=== PATIENT | female | born 1955 | race Caucasian/White ===

== ENCOUNTER 2017-06-25 10:46 | Inpatient (IN) | payer OTHER, MEDICARE ==
[~2017-06-25] VITALS: Ht 165.1 cm; Wt 72.6 kg
[2017-06-25 11:06] VITALS: BP 147/67; PULSE 97; RESP 24; TEMP 98.3; O2SAT 95
[2017-06-25 11:46] LABS: AUTOMATED NEUTROPHIL # 6.9 TH/MM3 (1.8-7.7); BASOPHIL % 0.3 % (0.0-2.0); EOSINOPHIL # 0.1 TH/MM3 (0-0.4); EOSINOPHIL % 0.9 % (0.0-4.0); HEMATOCRIT 39.2 % (35.0-46.0); HEMO FLAGS DIFF FINAL; LYMPH % 17.5 % (9.0-44.0); LYMPHOCYTE # 1.6 TH/MM3 (1.0-4.8); MEAN CELL VOLUME 88.3 FL (80.0-100.0); MEAN CORPUSCULAR HEMOGLOBIN 29.4 PG (27.0-34.0); MEAN CORPUSCULAR HGB CONC 33.3 % (32.0-36.0); MONO % 6.3 % (0.0-8.0); PLATELET COUNT 293 TH/MM3 (150-450); RED BLOOD COUNT 4.44 MIL/MM3 (4.00-5.30); RED CELL DISTRIBUTION WIDTH 14.5 % (11.6-17.2); WHITE BLOOD COUNT 9.2 TH/MM3 (4.0-11.0)
--- NOTE | 2017-06-25 11:54 | PD ---
HPI Chief Complaint: Psychiatric Symptoms Time Seen by Provider: 11:51 Travel History International Travel<30 days: No Contact w/Intl Traveler<30days: No Traveled to known affect area: No History of Present Illness HPI This is a 62-year-old female who self reports that she has a history of schizophrenia reporting that she's had increasing auditory and visual hallucinations have been going on for 2 days. She says that she is hearing voices constantly and she sees things and when she grows to grab them and they' re not there. She says the voices are telling her to run. She runs and follows them but then they tell her to do something different. She is very anxious and upset by this. She lives with her brother and states home by herself during the day. She says she's been doing fine up until the past 2 days. PFSH Past Medical History Blood Disorders: No Anxiety: Yes Depression: Yes Cancer: No Diabetes: Yes Patient Takes Glucophage: No Gastrointestinal Disorders: Yes Genitourinary: Yes Hypertension: Yes Psychiatric: Yes Tetanus Vaccination: > 5 Years Influenza Vaccination: Yes ?: Not Past Surgical History Cardiac Surgery: Yes (STENT X1 2014) Cholecystectomy: Yes Hysterectomy: Yes Pacemaker: No Other Surgery: Yes (R SIDED NEPHRECTOMY) Social History Alcohol Use: No Tobacco Use: Yes Substance Use: No Allergies-Medications (Allergen,Severity, Reaction): Coded Allergies: codeine (Unverified Allergy, Severe, 06/25/17) Penicillins (Verified Allergy, Intermediate, HIVES, 06/25/17) tramadol (Verified Allergy, Intermediate, HIVES, 06/25/17) Reported Meds & Prescriptions Reported Meds & Active Scripts Active Reported Doxepin (Doxepin HCl) 10 Mg Cap 10 Mg PO DAILY Effient (Prasugrel) 10 Mg Tab 10 Mg PO DAILY Duloxetine DR (Duloxetine HCl) 60 Mg Capdr 60 Mg PO DAILY Losartan-Hydrochlorothiazide 50-12.5 Mg Tab 1 Tab PO DAILY Lyrica (Pregabalin) 50 Mg Cap 50 Mg PO TID Diazepam 5 Mg Tab 5 Mg PO HS PRN Amlodipine (Amlodipine Besylate) 10 Mg Tab 10 Mg PO DAILY Doxepin (Doxepin HCl) 25 Mg Cap 25 Mg PO HS Aspirin EC (Aspirin) 81 Mg Tabdr 81 Mg PO DAILY Ziprasidone 80 Mg Cap 80 Mg PO DAILY Review of Systems ROS Limitations: Psychotic Physical Exam Narrative GENERAL:Well appearing, no acute distress SKIN: Focused skin assessment warm and dry. HEAD: Atraumatic. Normocephalic. EYES: Pupils equal and round. No injection or drainage. ENT: Moist mucous membranes NECK: Trachea midline. CARDIOVASCULAR: Regular rate and rhythm. No murmur appreciated. RESPIRATORY: Clear to auscultation. Breath sounds equal bilaterally. GASTROINTESTINAL: Abdomen soft, non-tender, nondistended. MUSCULOSKELETAL: No obvious deformities. NEUROLOGICAL: Awake and alert. No obvious cranial nerve deficits. Moving all extremities. PSYCHIATRIC: Tearful, anxious Data Data Last Documented VS Vital Signs Date Time Temp Pulse Resp B/P (MAP) Pulse Ox O2 Delivery O2 Flow Rate FiO2 06/25/17 12:26 71 17 164/62 (96) 95 Room Air 06/25/17 11:06 98.3 Orders Orders Complete Blood Count With Diff (06/25/17 11:21) Comprehensive Metabolic Panel (06/25/17 11:21) Psych Screen (06/25/17 11:21) Drug Screen, Random Urine (06/25/17 11:21) Olanzapine Odt (Zyprexa Zydis Odt) (06/25/17 12:00) Labs Laboratory Tests Test 06/25/17 11:00 White Blood Count 9.2 TH/MM3 Red Blood Count 4.44 MIL/MM3 Hemoglobin 13.1 GM/DL Hematocrit 39.2 % Mean Corpuscular Volume 88.3 FL Mean Corpuscular Hemoglobin 29.4 PG Mean Corpuscular Hemoglobin Concent 33.3 % Red Cell Distribution Width 14.5 % Platelet Count 293 TH/MM3 Mean Platelet Volume 7.7 FL Neutrophils (%) (Auto) 75.0 % Lymphocytes (%) (Auto) 17.5 % Monocytes (%) (Auto) 6.3 % Eosinophils (%) (Auto) 0.9 % Basophils (%) (Auto) 0.3 % Neutrophils # (Auto) 6.9 TH/MM3 Lymphocytes # (Auto) 1.6 TH/MM3 Monocytes # (Auto) 0.6 TH/MM3 Eosinophils # (Auto) 0.1 TH/MM3 Basophils # (Auto) 0.0 TH/MM3 CBC Comment DIFF FINAL Differential Comment Blood Urea Nitrogen 15 MG/DL Creatinine 0.92 MG/DL Random Glucose 281 MG/DL Total Protein 8.2 GM/DL Albumin 3.7 GM/DL Calcium Level 8.9 MG/DL Alkaline Phosphatase 124 U/L Aspartate Amino Transf (AST/SGOT) 25 U/L Alanine Aminotransferase (ALT/SGPT) 33 U/L Total Bilirubin 0.3 MG/DL Sodium Level 135 MEQ/L Potassium Level 4.0 MEQ/L Chloride Level 103 MEQ/L Carbon Dioxide Level 26.8 MEQ/L Anion Gap 5 MEQ/L Estimat Glomerular Filtration Rate 62 ML/MIN Urine Opiates Screen NEG Urine Barbiturates Screen NEG Urine Amphetamines Screen NEG Urine Benzodiazepines Screen POS Urine Cocaine Screen NEG Urine Cannabinoids Screen NEG MDM Medical Decision Making Medical Screen Exam Complete: Yes Emergency Medical Condition: Yes Interpretation(s) Afebrile, mild tachycardia, hypertensive Differential Diagnosis No leukocytosis Mild hypokalemia Hyperglycemia Urine drug screen is positive for benzodiazepines Narrative Course This is a 62-year-old female who has a history of schizophrenia who presents to the emergency department reporting increasing auditory and visual hallucinations. She appears acutely psychotic on exam. Labs are obtained which are reassuring. Patient will likely require psychiatric admission. I don 't appreciate any active concurrent medical problems at this time. Hilda Aponte MD Jun 25, 2017 11:54
[2017-06-25] MEDS ORDERED: OLANZapine ODT 10 MG TAB PO ONE (12:00)
[2017-06-25 12:02] LABS: ALT (GPT) 33 U/L (10-53); ANION GAP 5 MEQ/L (5-15); AST (GOT) 25 U/L (15-37); BICARBONATE 26.8 MEQ/L (21.0-32.0); BLOOD UREA NITROGEN 15 MG/DL (7-18); CHLORIDE 103 MEQ/L (98-107); GLOMERULAR FILTRATION RATE 62 ML/MIN (>89); SODIUM (NA) 135 MEQ/L (136-145)
[2017-06-25 12:04] LABS: ALKALINE PHOSPHATASE 124 U/L (45-117); TOTAL BILIRUBIN ADULT 0.3 MG/DL (0.2-1.0)
[2017-06-25] MEDS ORDERED: ASPI81TA11 PO (12:11)
[2017-06-25] MEDS ORDERED: DOXE25CA2 PO ×2 (12:11)
[2017-06-25] MEDS ORDERED: ZIPR1CAP12 PO (12:11)
[2017-06-25] MEDS ORDERED: DIAZ5TAB PO (12:18)
[2017-06-25] MEDS ORDERED: DULO1CAP3 PO (12:18)
[2017-06-25] MEDS ORDERED: LYRI50CA PO (12:18)
[2017-06-25] MEDS ORDERED: AMLO10TA2 PO (12:18)
[2017-06-25] MEDS ORDERED: LOSA50TA2 PO (12:18)
[2017-06-25] MEDS ORDERED: PRAS10TA PO (12:20)
[2017-06-25 12:26] VITALS: BP 164/62; PULSE 71; RESP 17; O2SAT 95
[2017-06-25] MEDS ORDERED: DOXE10CA PO (12:55)
[2017-06-25] MEDS ORDERED: ZIPRASIDONE MESYLATE 20 MG VIAL IM ONE (15:45)
--- NOTE | 2017-06-25 16:13 | PD ---
History of Present Illness Chief Complaint: Psychiatric Symptoms Time Seen by Provider: 15:15 Travel History International Travel<30 Days: No Contact w/Intl Traveler<30days: No Known affected area: No Legal Status Legal Status: Lee Act Lee Act Signed By: [facility] Lee Act Comment: INVOLUNTARY SIGNED BY History of Present Illness: History of Present Illness HPI This is a 62-year-old female with history of schizoaffective disorder, generalized anxiety disorder who is under a Lee act initiated by her outpatient therapist. As per the Lee act she presented to the office " with visual and auditory hallucinations including grabbing at things that aren't there", not being able to focus, inability to sleep due to intrusive thoughts with increase in symptoms in the past 2 days. She says the voices are telling her to run. She is very anxious and upset by this. She reports medication compliance. Recent stressors include of her brother approximately 2 months ago, recent divorce, recent move to [facility] and unable to see her grandchildren. EMR reviewed. No previous contact with [facility] psychiatry. Toxicology is positive for benzos which are prescribed. Patient is seen . Appears stated age. Dressed in [facility] w appropriate hygiene. She is tearful and pacing. States " I am hearing voices and I can't remember things. I feel like I'm loosing my mind" . Mood is depressed. Denies active suicidal ideation but expresses fear " of the voices telling me to run". She is experiencing difficulty answering questions due to decreased attention and current hallucinatory process. She is given ETO while in Ed . PFSH Past Medical History Blood Disorders: No Anxiety: Yes Depression: Yes Cancer: No Diabetes: Yes Patient Takes Glucophage: No Gastrointestinal Disorders: Yes Genitourinary: Yes Hypertension: Yes Psychiatric: Yes Tetanus Vaccination: > 5 Years Influenza Vaccination: Yes ?: Not Past Surgical History Cardiac Surgery: Yes (STENT X1 2014) Cholecystectomy: Yes Hysterectomy: Yes Pacemaker: No Other Surgery: Yes (R SIDED NEPHRECTOMY) Psychiatric History Psychiatric History Hx Psychiatric Treatment: Reports has had several psychiatric hospitalizations however unable at thsi time to provide further details due to current mental status. History of Inpatient Treatment: Yes Guns or firearms in home: No Social History Born in [place]. Is . lives with her brother and sister in law. On disability Hx Alcohol Use: No Hx Tobacco Use: Yes Hx Substance Use: No Other Substances Used: OCCASIONAL BEER, DENIES ANY OTHER SUBSTANCE USED. Hx of Substance Use Treatment: No Family Psychiatric History Unknown Allergies-Medications (Allergen,Severity, Reaction): Coded Allergies: codeine (Unverified Allergy, Severe, 06/25/17) Penicillins (Verified Allergy, Intermediate, HIVES, 06/25/17) tramadol (Verified Allergy, Intermediate, HIVES, 06/25/17) Reported Meds & Prescriptions Reported Meds & Active Scripts Active Reported Doxepin (Doxepin HCl) 10 Mg Cap 10 Mg PO DAILY Effient (Prasugrel) 10 Mg Tab 10 Mg PO DAILY Duloxetine DR (Duloxetine HCl) 60 Mg Capdr 60 Mg PO DAILY Losartan-Hydrochlorothiazide 50-12.5 Mg Tab 1 Tab PO DAILY Lyrica (Pregabalin) 50 Mg Cap 50 Mg PO TID Diazepam 5 Mg Tab 5 Mg PO HS PRN Amlodipine (Amlodipine Besylate) 10 Mg Tab 10 Mg PO DAILY Doxepin (Doxepin HCl) 25 Mg Cap 25 Mg PO HS Aspirin EC (Aspirin) 81 Mg Tabdr 81 Mg PO DAILY Ziprasidone 80 Mg Cap 80 Mg PO DAILY Review of Systems ROS Limitations: Psychotic Exam Alert: Yes [place]: Person (ox4) Mood: Anxious, Depressed Affect: Tearful Speech: Clear Eye Contact: Indirect Memory Intact: Comment (Not t ested) Hallucinations: Auditory Delusions: No Suicidal: Ideation (reports halluciantions command type to run) Homicidal: Ideation (deneis any) Insight/Judgement Fair. Not impaired. MDM Medical Decision Making Medical Record Reviewed: Yes Assessment/Plan This is a 62-year-old female with history of schizoaffective disorder, generalized anxiety disorder who is under a Lee act initiated by her outpatient therapist. As per the Lee act she presented to the office " with visual and auditory hallucinations including grabbing at things that aren't there", not being able to focus, inability to sleep due to intrusive thoughts with increase in symptoms in the past 2 days. When patient presents to ed she is tearful, restless and appears in great distress. She states that she is hearing voices, has intrusive thoughts and feels like " I'm loosing my mind" with inability to focus. Patient meets criteria for inpatient treatment for further evaluation, to stabilize symptoms and to maintain her safety. Orders Orders Complete Blood Count With Diff (06/25/17 11:21) Comprehensive Metabolic Panel (06/25/17 11:21) Psych Screen (06/25/17 11:21) Drug Screen, Random Urine (06/25/17 11:21) Olanzapine Odt (Zyprexa Zydis Odt) (06/25/17 12:00) Ziprasidone Inj (Geodon Inj) (06/25/17 15:45) Results Vital Signs Date Time Temp Pulse Resp B/P (MAP) Pulse Ox O2 Delivery O2 Flow Rate FiO2 06/25/17 12:26 71 17 164/62 (96) 95 Room Air 06/25/17 11:11 70 18 06/25/17 11:06 98.3 97 24 147/67 (93) 95 Laboratory Tests Test 06/25/17 11:00 White Blood Count 9.2 Red Blood Count 4.44 Hemoglobin 13.1 Hematocrit 39.2 Mean Corpuscular Volume 88.3 Mean Corpuscular Hemoglobin 29.4 Mean Corpuscular Hemoglobin Concent 33.3 Red Cell Distribution Width 14.5 Platelet Count 293 Mean Platelet Volume 7.7 Neutrophils (%) (Auto) 75.0 Lymphocytes (%) (Auto) 17.5 Monocytes (%) (Auto) 6.3 Eosinophils (%) (Auto) 0.9 Basophils (%) (Auto) 0.3 Neutrophils # (Auto) 6.9 Lymphocytes # (Auto) 1.6 Monocytes # (Auto) 0.6 Eosinophils # (Auto) 0.1 Basophils # (Auto) 0.0 CBC Comment DIFF FINAL Differential Comment Blood Urea Nitrogen 15 Creatinine 0.92 Random Glucose 281 Total Protein 8.2 Albumin 3.7 Calcium Level 8.9 Alkaline Phosphatase 124 Aspartate Amino Transf (AST/SGOT) 25 Alanine Aminotransferase (ALT/SGPT) 33 Total Bilirubin 0.3 Sodium Level 135 Potassium Level 4.0 Chloride Level 103 Carbon Dioxide Level 26.8 Anion Gap 5 Estimat Glomerular Filtration Rate 62 Urine Opiates Screen NEG Urine Barbiturates Screen NEG Urine Amphetamines Screen NEG Urine Benzodiazepines Screen POS Urine Cocaine Screen NEG Urine Cannabinoids Screen NEG Diagnosis Primary Impression: Schizoaffective disorder Admitting Information Admitting Physician Requests: Admit Problem Qualifiers Primary Impression: Schizoaffective disorder Qualified Codes: F25.1 - Schizoaffective disorder, depressive type Polly Triplett Jun 25, 2017 16:13
[2017-06-25] MEDS ORDERED: ALUMINUM/MAGNESIUM/SIMETH 30 ML CUP PO PRN (16:15)
[2017-06-25] MEDS ORDERED: MAGNESIUM HYDROXIDE SUSP 30 ML CUP PO PRN (16:15)
[2017-06-25 16:32] VITALS: BP 152/62; TEMP 98.3
[2017-06-25 17:17] VITALS: BP 169/80; PULSE 77; RESP 16; TEMP 97.4
[2017-06-25] MEDS ORDERED: DEXTROSE 50% IN WATER 50 ML VIAL(D50) IV PRN (18:00)
[2017-06-25] MEDS ORDERED: LORazepam 2 MG/ML VIAL IM PRN (18:00)
[2017-06-25] MEDS ORDERED: GLUCAGON 1 MG/ML VIAL OTHER PRN (18:00)
[2017-06-25 18:26] VITALS: BP 169/80; PULSE 77; RESP 17; TEMP 97.4; O2SAT 97
[2017-06-25] MEDS: LORazepam 0.5 MG TAB PO PRN (18:40)
[2017-06-25] MEDS: INSULIN ASPART SUPPLEMENTAL SCALE SQ SCH (20:45)
[2017-06-26] MEDS: LORazepam 0.5 MG TAB PO PRN (01:56)
[2017-06-26 05:39] VITALS: BP 131/64; PULSE 58; RESP 18; TEMP 99; O2SAT 94
[2017-06-26] MEDS: INSULIN ASPART SUPPLEMENTAL SCALE SQ SCH ×4 (06:40→21:00)
[2017-06-26] MEDS: HYDROCHLOROTHIAZIDE 12.5 MG CAP PO SCH (09:00)
[2017-06-26] MEDS: PRASUGREL 10 MG TAB PO SCH (09:00)
[2017-06-26] MEDS: LOSARTAN 50 MG TAB PO SCH (09:58)
[2017-06-26] MEDS: ASPIRIN EC 81 MG TABEC PO SCH (09:58)
--- NOTE | 2017-06-26 10:27 | HHI.HP ---
Provisional Diagnosis Admission Date Jun 25, 2017 at 16:17 Kerrick I. 1. Schizoaffective disorder, other type, acute exacerbation Kerrick II. Deferred Certification of Person's Competence To Provide Express and Informed Consent I have personally examined Yashira Hanks , a person being served at [facility] on, Jun 26, 2017 10:27. Express and informed consent means consent voluntarily given in writing, by a competent person, after sufficient explanation and disclosure of the subject matter involved to enable the person to make a knowing and willful decision without any element of force, fraud, deceit, duress, or other form of constraint or coercion. This person is 18 years of age or older, is not now known to be incompetent to consent to treatment with a guardian advocate, and does not have a health care surrogate or proxy currently making medical treatment decisions. I have found this person to be one of the following: [X] Competent to provide express and informed consent, as defined above, for voluntary admission to this facility and is competent to provide express and informed consent for treatment. He/she has the consistent capacity to make well reasoned, willful, and knowing decisions concerning his or her medical or mental health treatment. The person fully and consistently understands the purpose of the admission for examination/placement and is fully capable of personally exercising all rights assured [place] Incompetent to provide express and informed consent to voluntary admission, and this is incompetent to provide express and informed consent to treatment. The person must be transferred to involuntary status and a petition for a guardian advocate filed with the Circuit Court. [] Refusing to provide express and informed consent to voluntary admission but is competent to provide express and informed consent for treatment. The person must be discharged or transferred to involuntary status. Form shall be completed within 24 hours of a person's arrival at the receiving facility and filed in the clinical record of each person: 1. Admitted on a voluntary basis 2. Permitted to provide express and informed consent to his/her own treatment 3. Allowed to transfer from involuntary to voluntary status 4. Prior to permitting a person to consent to his or her own treatment after having been previously found incompetent to consent to treatment. History of Present Illness Capacity: Has Capacity HPI Ms. Hanks is a 62-year-old female with a reported history of schizoaffective disorder who presents under a Lee act initiated by [facility] alleging that the patient was experiencing auditory hallucinations and possible command auditory hallucinations to self injure. Patient was evaluated by the psychiatric nurse practitioner in the ED. Reviewing the electronic medical record, I see no recent psychiatric contact within our system, although it does appear the patient was seen in consultation [place] [address] Crane. Patient seen and examined with nurse. Chart reviewed. Case discussed with nursing staff. On my examination today, the patient presents as somewhat anxious. She says that she has been living with her brother and his . She says that they treat her very well but she is left home alone a lot of the time and is quite lonely. She says that she was Lee acted because she went into her mental health office crying. She does say that she has been hearing voices "telling me to get out and run because they're going to get me." She also says that she has been "seeing things on the floor that aren't there." She endorses feeling depressed. Endorses hopelessness and worthlessness. Sleep is poor. She does not describe any current suicidal ideation but does say she has been feeling more irritable although she stops short of articulating homicidal ideation. No hypomanic or manic symptoms noted. No delusions. The remainder of the psychiatric ROS is negative. No physical complaints at this time. Past psychiatric history: The patient has a history of schizoaffective disorder. She follows with Dr. Saldaña. She reports her home psychotropics as Geodon, Doxepin at HS, and Valium PRN. She reports her most recent psychiatric admission was at [facility] about 7 years ago. She endorses a history of suicide attempt by cutting in the past. Review of Systems ROS Limitations: Psychotic Except as stated in HPI: all other systems reviewed are Neg Past Psych History Psychological trauma history No reported trauma history to me Violence risk - others (6 mos) Indeterminate. Patient does describe feeling more irritable that does not describe HI at this time. She is psychotic and unpredictable though. Violence risk - self (6 mos) Indeterminate. Patient does not describe SI at this time but does endorse feeling increasingly depressed. She does have a history of suicide attempts. Substance Abuse History Drugs/Alcohol past 12 months Patient denies any abuse of drugs or alcohol. She enjoys an occasional alcoholic beverage. Past Family Social History Coded Allergies: codeine (Unverified Allergy, Severe, 06/25/17) Penicillins (Verified Allergy, Intermediate, HIVES, 06/25/17) tramadol (Verified Allergy, Intermediate, HIVES, 06/25/17) Past Medical History See electronic medical record. Reported Medications Doxepin (Doxepin) 10 Mg Cap, 10 MG PO DAILY, CAP 06/25/17 Prasugrel (Effient) 10 Mg Tab, 10 MG PO DAILY for Blood Clot Prevention, #30 TAB 0 Refills 06/25/[address] (Duloxetine DR) 60 Mg Capdr, 60 MG PO DAILY, #30 CAP 0 Refills 06/25/17 Losartan-Hydrochlorothiazide (Losartan-Hydrochlorothiazide) 50-12.5 Mg Tab, 1 TAB PO DAILY for Blood Pressure Management, #30 TAB 0 Refills 06/25/17 Pregabalin (Lyrica) 50 Mg Cap, 50 MG PO TID, #90 CAP 0 Refills 06/25/17 Diazepam (Diazepam) 5 Mg Tab, 5 MG PO HS Y for ANXIETY, TAB 0 Refills 06/25/17 Amlodipine (Amlodipine) 10 Mg Tab, 10 MG PO DAILY for Blood Pressure Management , #30 TAB 0 Refills 06/25/17 Doxepin (Doxepin) 25 Mg Cap, 25 MG PO HS, #30 CAP 0 Refills 06/25/[address] (Aspirin EC) 81 Mg Tabdr, 81 MG PO DAILY, TAB 0 Refills 06/25/17 Ziprasidone (Ziprasidone) 80 Mg Cap, 80 MG PO DAILY, #60 CAP 0 Refills 06/25/17 Discontinued Reported Medications Doxepin (Doxepin) 25 Mg Cap, 10 MG PO DAILY, #60 CAP 0 Refills 06/25/17 Current Medications Medications (Trade) Dose Ordered Sig/Kendy Route Start Time Stop Time Status Last Admin (Tylenol) 650 mg Q4H PRN PO 06/25/17 16:15 (Milk Of Magnesia Liq) 30 ml DAILY PRN PO 06/25/17 16:15 (Mag-Al Plus Susp Liq) 30 ml Q6H PRN PO 06/25/17 16:15 (D50w (Vial) Inj) 50 ml UNSCH PRN IV 06/25/17 18:00 (Glucagon Inj) 1 mg UNSCH PRN OTHER 06/25/17 18:00 (NovoLOG SUPPLEMENTAL SCALE) 1 ACHS SLIDING SCALE SQ 06/25/17 21:00 06/26/17 06:40 (Ativan) 0.5 mg Q6H PRN PO 06/25/17 18:00 06/26/17 01:56 (Ativan Inj) 0.5 mg Q6H PRN IM 06/25/17 18:00 (Effient) 10 mg DAILY PO 06/26/17 09:00 06/26/17 09:00 (Norvasc) 10 mg DAILY PO 06/26/17 09:00 (Microzide) 12.5 mg DAILY PO 06/26/17 09:00 (Cozaar) 50 mg DAILY PO 06/26/17 09:00 06/26/17 09:58 (Ecotrin Ec) 81 mg DAILY PO 06/26/17 09:00 06/26/17 09:58 Family History Patient denies any family history of mental illness. Social History Patient lives with her brother and his . She is high school educated. She is on disability. She was about 4 months ago. She has 2 sons and a daughter. She also has 2 grandsons and 1 granddaughter. She denies any or legal history. She denies any access to guns or firearms. Patient's Strengths (min. 2) In a monitored setting. Verbally fluent. Physical Exam Physical examination completed by ED provider. On my examination today, the patient appears to be in no acute physical distress. No abnormal motor movements noted. Labs and vitals reviewed: Vital Signs Vital Signs Date Time Temp Pulse Resp B/P (MAP) Pulse Ox O2 Delivery O2 Flow Rate FiO2 06/26/17 05:39 99.0 58 18 131/64 (86) 94 06/25/17 12:26 Room Air Lab Results Item Value Date Time White Blood Count 9.2 TH/MM3 06/25/17 1100 Hemoglobin 13.1 GM/DL 06/25/17 1100 Platelet Count 293 TH/MM3 06/25/17 1100 Sodium Level 135 MEQ/L L 06/25/17 1100 Potassium Level 4.0 MEQ/L 06/25/17 1100 Chloride Level 103 MEQ/L 06/25/17 1100 Carbon Dioxide Level 26.8 MEQ/L 06/25/17 1100 Blood Urea Nitrogen 15 MG/DL 06/25/17 1100 Creatinine 0.92 MG/DL 06/25/17 1100 Random Glucose 281 MG/DL H 06/25/17 1100 Aspartate Amino Transf (AST/SGOT) 25 U/L 06/25/17 1100 Alanine Aminotransferase (ALT/SGPT) 33 U/L 06/25/17 1100 Alkaline Phosphatase 124 U/L H 06/25/17 1100 Urine Benzodiazepines Screen POS H 06/25/17 1100 Mild hyponatremia noted. Hyperglycemia noted. EKG reveals sinus rhythm with incomplete right bundle-branch block and a QTC of 428 ms. Mental Status Examination No motor abnormalities noted. Registration 3 out of 3 in recall 0 out of 3 at 3 minutes. Unable to perform attention testing. Able to name 2 items but struggles to repeat a phrase. Difficulties with mental status testing may be related to active psychotic symptoms, and I am less suspicious of underlying neurocognitive disorder. Appearance In hospital attire. Well groomed. Speech: Unremarkable Orientation: Person, Place (hospital) Memory: Unremarkable Thought Process: Logical, Linear Thought Content: Other (no delusions) Language Unremarkable Fund of Knowledge Average Hallucination Type: Auditory (as noted above), Visual (as noted above) Attention and Concentration: Other (fair) Suicidal Ideation: No Previous Suicide Attempts: Yes Homicidal Ideation: No (but is feeling quite irritable) Previous Homicide Attempts: No Insight: Fair Judgment: Poor Affect: Other (restricted) Mood: Other (depressed) Motor Activity: Normal gait Assessment & Plan Problem List: (1) Schizoaffective disorder ICD Codes: F25.9 - Schizoaffective disorder, unspecified Status: Acute Assessment & Plan 62-year-old female with psychiatric history as detailed above who presents under a Lee act. On my examination today, the patient reports psychotic symptoms, chiefly of hallucinations, along with depressive symptomatology. No reported issues with medication adherence. We discussed strategies to lessen her psychotic symptoms and improve mood, and she is agreeable to the plan as outlined below. The patient requires psychiatric hospitalization at this time for safety, observation and stabilization. Admit inpatient. Voluntary status. Titrate Geodon to 60 mg twice daily with meals. Continue doxepin 35 mg at bedtime. I will utilize Valium p.r.n. anxiety as patient takes this at home as needed. Ativan IM p.r.n. anxiety if unable to take PO. Obtain medication list as I see that venlafaxine is listed in patient's med rec in the EMR but patient does not report that she takes this medication outpatient. Consult the hospitalist. I will continue patient's Effient, amlodipine, losartan-hydrochlorothiazide and Lyrica. Diabetic diet. Accu-Cheks and sliding scale. Follow-up laboratories ordered by the nurse practitioner. Vitals every shift. Counselor to see. Disposition planning. Estimated length of stay: 5-7 days. Discharge Planning Pending psychiatric stabilization Request HC Surrog/Guard Advoc?: No Problem Qualifiers (1) Schizoaffective disorder: Qualified Codes: F25.8 - Other schizoaffective disorders Duran Moraes MD Jun 26, 2017 10:27
--- NOTE | 2017-06-26 11:17 | EKG ---
Date Performed: 06/26/2017 Time Performed: 07:57:50 PTAGE: 62 years EKG: Sinus rhythm INCOMPLETE RIGHT BUNDLE BRANCH BLOCK BORDERLINE ECG PREVIOUS TRACING : 07/29/2004 23.37 No significant change from previous tracing noted. DOCTOR: Chris Mccullough Interpretating Date/Time 06/26/2017 11:15:45
[2017-06-26 11:32] LABS: ANION GAP 5 MEQ/L (5-15); BICARBONATE 30.9 MEQ/L (21.0-32.0); BLOOD UREA NITROGEN 15 MG/DL (7-18); CHLORIDE 102 MEQ/L (98-107); GLOMERULAR FILTRATION RATE 69 ML/MIN (>89); POTASSIUM 3.7 MEQ/L (3.5-5.1); SODIUM (NA) 138 MEQ/L (136-145)
[2017-06-26 11:57] LABS: HDL CHOLESTEROL 50.1 MG/DL (40.0-60.0); LDL CHOLESTEROL 118 MG/DL (0-99)
[2017-06-26] MEDS: PREGABALIN 25 MG CAP PO SCH ×2 (13:32→21:24)
[2017-06-26 16:18] LABS: HEMOGLOBIN A1a 1.2 %; HEMOGLOBIN A1b 1.1 %; HEMOGLOBIN Ao 80.1 %; HEMOGLOBIN F 1.4 %; HEMOGLOBIN LA1C 2.8 %; HEMOGLOBIN P3 4.6 %
[2017-06-26] MEDS: ZIPRASIDONE HCL 60 MG CAP PO SCH (18:21)
[2017-06-26] MEDS: DOXEPIN HCL 10 MG CAP PO SCH (21:24)
[2017-06-26] MEDS: DOXEPIN HCL 25 MG CAP PO SCH (21:24)
[2017-06-26] MEDS: DIAZEPAM 5 MG TAB PO PRN (21:26)
[2017-06-26 21:48] VITALS: BP 174/76; PULSE 82; RESP 17; TEMP 98.6; O2SAT 94
[2017-06-27] MEDS: PREGABALIN 25 MG CAP PO SCH ×3 (05:50→22:05)
[2017-06-27] MEDS: INSULIN ASPART SUPPLEMENTAL SCALE SQ SCH ×4 (05:57→21:00)
[2017-06-27 06:35] VITALS: BP 141/73; PULSE 77; RESP 18; TEMP 97.8; O2SAT 94
[2017-06-27] MEDS: HYDROCHLOROTHIAZIDE 12.5 MG CAP PO SCH (09:00)
[2017-06-27] MEDS: PRASUGREL 10 MG TAB PO SCH (09:00)
[2017-06-27] MEDS: DIAZEPAM 5 MG TAB PO PRN ×2 (09:00→22:06)
[2017-06-27] MEDS: LOSARTAN 50 MG TAB PO SCH (09:00)
[2017-06-27] MEDS: ASPIRIN EC 81 MG TABEC PO SCH (09:01)
[2017-06-27] MEDS: ZIPRASIDONE HCL 60 MG CAP PO SCH ×2 (09:02→18:20)
[2017-06-27] MEDS: ACETAMINOPHEN 325 MG TAB PO PRN ×3 (09:02→23:09)
--- NOTE | 2017-06-27 12:59 | HHI.PYPN ---
Subjective Remarks Patient seen and case discussed with nurse. Labs reviewed. Patient remains depressed with suicidal ideation. Review of Systems Except as stated in HPI: all other systems reviewed are Neg Objective Alert: Yes [place]: Person (ox4) Mood: Anxious, Depressed Affect: Tearful Memory Intact: Comment (Not t ested) Hallucinations: Auditory Delusions: No Delusion Type: Other Suicidal: Ideation (reports halluciantions command type to run) Homicidal: Ideation (deneis any) Insight/Judgment Impaired Vitals/IOs Vital Signs Date Time Temp Pulse Resp B/P (MAP) Pulse Ox O2 Delivery O2 Flow Rate FiO2 06/27/17 06:35 97.8 77 18 141/73 (95) 94 06/25/17 12:26 Room Air Assessment & Plan Problem List: (1) Schizoaffective disorder ICD Codes: F25.9 - Schizoaffective disorder, unspecified Status: Acute Assessment & Plan Estimated LOS: days will continue to assess efficacy of current medication versus tolerability. Justification for Cont. Inpt. Depressed, suicidal and difficulty caring for self. Request HC Surrog/Guard Advoc?: No Problem Qualifiers (1) Schizoaffective disorder: Qualified Codes: F25.8 - Other schizoaffective disorders Don Castillo MD Jun 27, 2017 12:59
[2017-06-27 17:59] VITALS: BP 156/68; PULSE 78; RESP 18; TEMP 98.2; O2SAT 97
[2017-06-27] MEDS: DOXEPIN HCL 10 MG CAP PO SCH (22:06)
[2017-06-27] MEDS: DOXEPIN HCL 25 MG CAP PO SCH (22:06)
[2017-06-28] MEDS: PREGABALIN 25 MG CAP PO SCH ×3 (06:38→21:50)
[2017-06-28] MEDS: INSULIN ASPART SUPPLEMENTAL SCALE SQ SCH ×4 (07:00→21:50)
[2017-06-28 07:07] VITALS: BP 116/59; PULSE 82; RESP 18; TEMP 97.6; O2SAT 96
[2017-06-28] MEDS: HYDROCHLOROTHIAZIDE 12.5 MG CAP PO SCH (07:29)
[2017-06-28] MEDS: ASPIRIN EC 81 MG TABEC PO SCH (08:14)
[2017-06-28] MEDS: LOSARTAN 50 MG TAB PO SCH (08:14)
[2017-06-28] MEDS: PRASUGREL 10 MG TAB PO SCH (08:15)
[2017-06-28] MEDS: ZIPRASIDONE HCL 60 MG CAP PO SCH (08:20)
[2017-06-28] MEDS: ACETAMINOPHEN 325 MG TAB PO PRN ×4 (08:21→23:28)
[2017-06-28] MEDS: DIAZEPAM 5 MG TAB PO PRN ×2 (08:21→20:06)
--- NOTE | 2017-06-28 11:35 | HHI.PYPN ---
Subjective Remarks Patient seen and examined with nurse. Chart reviewed. Case discussed with nursing staff who reports the patient has a history of fibromyalgia and has been complaining of generalized myalgias unrelieved by Tylenol. On my examination today, the patient does indeed appear to be walking with a somewhat antalgic gait. She does complain of right arm and bilateral leg pain. She says that she normally takes [place] every 6-8 hours, although I did consult the controlled substances database report and I see no record of her receiving opiate pain medications. She complains of ongoing auditory hallucinations "telling me to run." She is quite distressed by these voices and endorses suicidal ideation in response to her distress at the voices although she denies any suicidal plan or intent at this time. Affect is quite dysphoric. Denies side effects from medications. Says that she has been taking Geodon for over a decade and agrees that it is reasonable to try to maximize this medication therefore before we switch to a different agent. No other physical complaints. Review of Systems Except as stated in HPI: all other systems reviewed are Neg Objective Alert: Yes [place]: Person, Place Mood: Anxious, Depressed Affect: Restricted, Tearful Memory Intact: Comment (not formally assessed but seems generally intact) Hallucinations: Auditory (ongoing, as above) Delusions: No Delusion Type: Other (no delusions) Suicidal: Intent (denies), Plan (denies), Ideation (ongoing) Homicidal: Ideation (no HI) Insight/Judgment Poor Remarks No motoric abnormalities noted. Thought process linear. Grooming and hygiene fair. Labs Labs reviewed. Vitals/IOs Vital Signs Date Time Temp Pulse Resp B/P (MAP) Pulse Ox O2 Delivery O2 Flow Rate FiO2 06/28/17 07:07 97.6 82 18 116/59 (78) 96 06/25/17 12:26 Room Air Intake and Output 06/28/17 06/28/17 06/29/17 08:00 16:00 00:00 Intake Total 480 ml Balance 480 ml Assessment & Plan Problem List: (1) Schizoaffective disorder ICD Codes: F25.9 - Schizoaffective disorder, unspecified Status: Acute Assessment & Plan Titrate Geodon to 80 mg twice daily with meals to target psychotic symptoms. Continue other psychotropics as ordered. Consult the hospitalist for patient's pain complaints. I did caution her about the dangers of combining benzodiazepines and opiates should she be prescribed these by the hospitalist. Continue to monitor on the inpatient unit. Continue other medications and care as ordered. Justification for Cont. Inpt. Concern for impairment and safety. Medication changes. Impairment in reality construction. High risk for decompensation in a less restrictive environment. Discharge Planning Pending psychiatric stabilization Request HC Surrog/Guard Advoc?: No Problem Qualifiers (1) Schizoaffective disorder: Qualified Codes: F25.8 - Other schizoaffective disorders Duran Moraes MD Jun 28, 2017 11:35
[2017-06-28] MEDS: ZIPRASIDONE HCL 80 MG CAP PO SCH (17:27)
[2017-06-28 17:48] VITALS: BP 155/72; PULSE 77; RESP 18; TEMP 98.1; O2SAT 97
[2017-06-28] MEDS: DOXEPIN HCL 25 MG CAP PO SCH (21:50)
[2017-06-28] MEDS: DOXEPIN HCL 10 MG CAP PO SCH (21:50)
[2017-06-29] MEDS: ACETAMINOPHEN 325 MG TAB PO PRN ×4 (04:23→21:37)
[2017-06-29] MEDS: PREGABALIN 25 MG CAP PO SCH ×3 (05:55→21:35)
[2017-06-29] MEDS: INSULIN ASPART SUPPLEMENTAL SCALE SQ SCH ×4 (06:09→21:16)
[2017-06-29 06:13] VITALS: BP 136/63; PULSE 73; RESP 17; TEMP 97.7; O2SAT 96
[2017-06-29] MEDS: HYDROCHLOROTHIAZIDE 12.5 MG CAP PO SCH (08:11)
[2017-06-29] MEDS: ASPIRIN EC 81 MG TABEC PO SCH (08:36)
[2017-06-29] MEDS: ZIPRASIDONE HCL 80 MG CAP PO SCH ×2 (08:37→16:39)
[2017-06-29] MEDS: CHOLECALCIFEROL (VIT D3) 1000 UNIT TAB PO SCH (08:37)
[2017-06-29] MEDS: PRASUGREL 10 MG TAB PO SCH (08:37)
[2017-06-29] MEDS: LOSARTAN 50 MG TAB PO SCH (08:37)
--- NOTE | 2017-06-29 11:23 | HHI.PYPN ---
Subjective Remarks Patient seen and examined with nurse. Chart reviewed. Case discussed with nursing staff. On my examination today, the patient appears fairly euthymic but complains of ongoing auditory hallucinations as before. No SI or HI. Complains of ongoing leg and arm pain, and the hospitalist consultation is pending. Denies side effects from medications. No other physical complaints. Says that she might like to be discharged tomorrow but agrees to remain on the unit to allow for better control of her psychiatric symptoms. Review of Systems ROS Limitations: Psychotic Except as stated in HPI: all other systems reviewed are Neg Objective Alert: Yes [place]: Person, Place Mood: Anxious Affect: Euthymic Memory Intact: Comment (intact on clinical exam) Hallucinations: Auditory (ongoing) Delusions: No Delusion Type: Other (no delusions) Suicidal: Ideation (no SI) Homicidal: Ideation (no HI) Insight/Judgment Poor Remarks No motor abnormalities noted Labs Labs reviewed Vitals/IOs Vital Signs Date Time Temp Pulse Resp B/P (MAP) Pulse Ox O2 Delivery O2 Flow Rate FiO2 06/29/17 06:13 97.7 73 17 136/63 (87) 96 06/25/17 12:26 Room Air Intake and Output 06/29/17 06/29/17 06/30/17 08:00 16:00 00:00 Intake Total 240 ml Balance 240 ml Assessment & Plan Problem List: (1) Schizoaffective disorder ICD Codes: F25.9 - Schizoaffective disorder, unspecified Status: Acute Assessment & Plan Titrate Geodon to 100 mg twice daily. I have discussed with the patient that if we do not begin to get some traction on her reported hallucinations soon with adjustment of her Geodon, we ought to consider trying an alternative antipsychotic. Follow-up hospitalist recommendations. Continue other medications and care as ordered. Justification for Cont. Inpt. Med changes. Impairment in reality construction. Discharge Planning Pending psychiatric stabilization. Request HC Surrog/Guard Advoc?: No Problem Qualifiers (1) Schizoaffective disorder: Qualified Codes: F25.8 - Other schizoaffective disorders Duran Moraes MD Jun 29, 2017 11:23
--- NOTE | 2017-06-29 15:35 | PD.CONS ---
HPI Service [facility] Hospitalists Consult Requested By Dr. Moraes Reason for Consult Fibromyalgia and muscle weakness Primary Care Physician Unknown Diagnoses: (1) Type 2 diabetes mellitus (2) Vitamin D deficiency (3) Sleep apnea in adult (4) Muscle weakness (5) Schizoaffective disorder (6) Hyperlipidemia History of Present Illness Written by Amber Hood, acting as scribe for Dr. Lauren on 06/29/17 at 15:35. Ms. Hanks is a 62-year-old female patient with a known medical history of schizoaffective disorder, fibromyalgia, DM and hyperlipidemia who presented to the ED with increasing visual and auditory hallucinations. Hospitalist team has been consulted for complaints of right upper extremity weakness and bilateral lower extremity weakness. Patient states she has been having intermittent spasms in her right upper arm and bilateral lower extremities. Pain is cramping in nature, lasts roughly 2-3 hours, relieved by Tylenol and ambulation with no identifiable aggravating factors. She has noticed it being "more difficult getting up from a sitting position", "always falling" and complaint of stiffness in her bilateral lower extremities right after waking up each morning requiring her to sit for a few minutes to relieve the stiffness. Denies any recent fever, chills, cough, headache, shortness of breath, ab pain, n/v/d or dysuria. Denies any recent leg swelling. Review of Systems Constitutional: DENIES: Fever, Chills, Dizziness Respiratory: DENIES: Cough, Shortness of breath Cardiovascular: DENIES: Chest pain, Palpitations Gastrointestinal: DENIES: Constipation, Diarrhea, Nausea, Vomiting Musculoskeletal: COMPLAINS OF: Joint pain, Stiffness Neurologic: COMPLAINS OF: Abnormal gait, Localized weakness, Poor Balance Psychiatric: COMPLAINS OF: Hallucinations Except as stated in HPI: all other systems reviewed are Neg All systems reviewed and was positive for what is mentioned in history of present illness otherwise negative Past Family Social History Allergies: Coded Allergies: codeine (Unverified Allergy, Severe, 06/25/17) Penicillins (Verified Allergy, Intermediate, HIVES, 06/25/17) tramadol (Verified Allergy, Intermediate, HIVES, 06/25/17) Past Medical History Schizoaffective disorder Anxiety Depression Type 2 diabetes mellitus Hypertension CAD Hyperlipidemia Vitamin D deficiency Past Surgical History CAD with stent placement x 1 in 2014 Cholecystectomy Hysterectomy Right sided nephrectomy Reported Medications Active Reported Doxepin (Doxepin HCl) 10 Mg Cap 10 Mg PO DAILY Effient (Prasugrel) 10 Mg Tab 10 Mg PO DAILY Duloxetine DR (Duloxetine HCl) 60 Mg Capdr 60 Mg PO DAILY Losartan-Hydrochlorothiazide 50-12.5 Mg Tab 1 Tab PO DAILY Lyrica (Pregabalin) 50 Mg Cap 50 Mg PO TID Diazepam 5 Mg Tab 5 Mg PO HS PRN Amlodipine (Amlodipine Besylate) 10 Mg Tab 10 Mg PO DAILY Doxepin (Doxepin HCl) 25 Mg Cap 25 Mg PO HS Aspirin EC (Aspirin) 81 Mg Tabdr 81 Mg PO DAILY Ziprasidone 80 Mg Cap 80 Mg PO DAILY Active Ordered Medications Current Medications Medications (Trade) Dose Ordered Sig/Kendy Route Start Time Stop Time Status Last Admin (Tylenol) 650 mg Q4H PRN PO 06/25/17 16:15 06/29/17 15:35 (Milk Of Magnesia Liq) 30 ml DAILY PRN PO 06/25/17 16:15 (Mag-Al Plus Susp Liq) 30 ml Q6H PRN PO 06/25/17 16:15 (D50w (Vial) Inj) 50 ml UNSCH PRN IV 06/25/17 18:00 (Glucagon Inj) 1 mg UNSCH PRN OTHER 06/25/17 18:00 (NovoLOG SUPPLEMENTAL SCALE) 1 ACHS SLIDING SCALE SQ 06/25/17 21:00 06/29/17 15:34 (Ativan Inj) 0.5 mg Q6H PRN IM 06/25/17 18:00 (Effient) 10 mg DAILY PO 06/26/17 09:00 06/29/17 08:37 (Norvasc) 10 mg DAILY PO 06/26/17 09:00 06/27/17 09:01 (Microzide) 12.5 mg DAILY PO 06/26/17 09:00 06/27/17 09:00 (Cozaar) 50 mg DAILY PO 06/26/17 09:00 06/29/17 08:37 (Ecotrin Ec) 81 mg DAILY PO 06/26/17 09:00 06/29/17 08:36 (Lyrica) 50 mg Q8HR PO 06/26/17 14:00 06/29/17 12:50 (SINEquan) 25 mg HS PO 06/26/17 21:00 06/28/17 21:50 (Valium) 5 mg BID PRN PO 06/26/17 10:45 06/28/17 20:06 (SINEquan) 10 mg HS PO 06/26/17 21:00 06/28/17 21:50 (Vitamin D3) 2,000 units DAILY PO 06/29/17 09:00 06/29/17 08:37 (Geodon) 80 mg BIDPC PO 06/29/17 18:00 (Geodon) 20 mg BIDPC PO 06/29/17 18:00 Family History Denies any significant family medical history including cardiovascular disease, cancer or lung disease. Social History Denies any current tobacco abuse. Admits to occasional alcohol use. Denies any illicit drug use. Physical Exam Vital Signs Vital Signs Date Time Temp Pulse Resp B/P (MAP) Pulse Ox O2 Delivery O2 Flow Rate FiO2 06/29/17 06:13 97.7 73 17 136/63 (87) 96 06/29/17 05:19 18 06/28/17 17:48 98.1 77 18 155/72 (99) 97 Physical Exam GENERAL: This is a well-nourished, well-developed female patient, sitting on the side of the bed in no apparent distress. SKIN: No rash. Warm and dry. HEENT: Atraumatic. Normocephalic. Pupils equal round and reactive. Extraocular motions intact. No scleral icterus. No injection or drainage. Nose without bleeding. Airway patent. NECK: Trachea midline. No JVD. Supple. CARDIOVASCULAR: Regular rate and rhythm without murmurs, gallops, or rubs. RESPIRATORY: Clear to auscultation. Breath sounds equal bilaterally. No wheezes , rales, or rhonchi. GASTROINTESTINAL: Abdomen soft, non-tender, nondistended. No guarding. MUSCULOSKELETAL: Extremities without clubbing, cyanosis, or edema. No joint tenderness, effusion, or edema noted. Proximal muscle weakness in bilateral lower extremities. NEUROLOGICAL: Awake and alert. Cranial nerves II through XII intact. Motor and sensory grossly within normal limits. Right upper extremity strength 3/5. Left upper extremity and bilateral lower extremity strength 2/5. Normal speech. DTR brisk. Patient not able to hold lower extremity against gravity bilaterally Result Diagram: 06/25/17 1100 06/26/17 0947 Assessment and Plan Problem List: (1) Schizoaffective disorder ICD Code: F25.9 - Schizoaffective disorder, unspecified Status: Acute (2) Muscle weakness ICD Code: M62.81 - Muscle weakness (generalized) (3) Vitamin D deficiency ICD Code: E55.9 - Vitamin D deficiency, unspecified (4) Type 2 diabetes mellitus ICD Code: E11.9 - Type 2 diabetes mellitus without complications (5) Sleep apnea in adult ICD Code: G47.30 - Sleep apnea, unspecified (6) Hyperlipidemia ICD Code: E78.5 - Hyperlipidemia, unspecified Assessment and Plan 62 years old female with a history of fibromyalgia admitted to the psych unit for schizoaffective disorder, medical service consulted regarding history of fibromyalgia. Schizoaffective disorder - Management per psychiatry team. - Current regimen Doxepin, Diazepam, Geodon. Bilateral bilateral lower extremity muscle weakness mostly in the shoulder and pelvic girdle rule out PMR versus polymyositis versus fibromyalgia - Since fibromyalgia is diagnosis of exclusion, we'll try to pain workup from her primary care office, will check [place]LD[place], CK, aldolase, ESR, CRP, TSH, and MRI of the cervical spine. Follow. - Continue home Lyrica for now. Tylenol PRN pain. Type 2 diabetes mellitus, chronic uncontrolled - Hemoglobin a1C 8.4. - ACCU checks ACHS, sliding scale insulin, cover as needed. - Continue 1800 ADA diet. Hyperlipidemia, chronic: Continue home Losartan. Hypertension, chronic: Relatively controlled. Continue Amlodipine and HCTZ. Monitor BPs. CAD with stent placement: Continue Effient. Continue aspirin. Vitamin D deficiency: Level 22.5. Continue on supplementation. Thank you for this consultation. Will follow with you. This note was transcribed by myesha [Amber Hood]. I, Dr. Diane Lauren personally performed the history, physical exam, and medical decision making; and confirmed the accuracy of the information in the transcribed note. Authenticated by Dr. Diane Lauren on 06/29/17 at 15:45. Problem Qualifiers (1) Schizoaffective disorder: Qualified Codes: F25.8 - Other schizoaffective disorders Amber Hood Jun 29, 2017 15:35 Diane Lauren MD Jun 29, 2017 15:49
[2017-06-29] MEDS: ZIPRASIDONE HCL 20 MG CAP PO SCH (16:39)
[2017-06-29 18:20] VITALS: BP 156/62; PULSE 81; RESP 18; TEMP 98.1; O2SAT 94
--- NOTE | 2017-06-29 18:21 | RADRPT ---
EXAM DATE/TIME: 06/29/2017 17:38 [facility] COMPARISON: No previous studies available for comparison. INDICATIONS : Right arm and bilateral leg pain for 2 weeks with no known injury. MEDICAL HISTORY : Hypertension. Diabetes mellitus type 2. Kidney disease. SURGICAL HISTORY : Hysterectomy. Rt kidney removed, Rt carpal tunnel, Lt hand tendon, hernia x3 ENCOUNTER: Subsequent ACUITY: 2 weeks PAIN SCORE: 3/10 LOCATION: Right arm bilat legs TECHNIQUE: Multiplanar, multisequence MRI examination of the cervical spine was performed. FINDINGS: VERTEBRAE: Normal vertebral body height. Homogeneous marrow signal. ALIGNMENT: No evidence of subluxation. CORD: Normal configuration and signal. POST FOSSA: The cerebellar tonsils are normal in position. C2-C3: The thecal sac has a normal configuration. There is no evidence of disc herniation or spinal canal s tenosis. The neural foramina are patent bilaterally. C3-C4: There is a minimal central disc protrusion without significant stenosis. The thecal sac has a normal configuration. The neural foramina are patent bilaterally. C4-C5: There is a minimal central to left paracentral disc protrusion without significant stenosis. There is facet and uncovertebral hypertrophy causing some narrowing of the right neural foramina. The left ne ural foramina is patent. C5-C6: There is a minimal central to left paracentral disc protrusion without significant stenosis. The thec al sac has a normal configuration. The neural foramina are patent bilaterally. There is mild facet h ypertrophy. C6-C7: There is a mild left lateral recess disc protrusion without significant stenosis. The thecal sac has a normal configuration. The neural foramina are patent bilaterally. C7-T1: The thecal sac has a normal configuration. There is no evidence of disc herniation or spinal canal s tenosis. The neural foramina are patent bilaterally. CONCLUSION: Minimal central disc protrusions at the C3-C4, C4-C5 and C5-C6 level and a mild left disc protrusion at the C6-C7 level. There is right neural foraminal narrowing at the C4-C5 level. Moe Michael MD on June 29, 2017 at 18:13 Board Certified Radiologist. This report was verified electronically.
[2017-06-29 21:22] LABS: CKMB 1.9 NG/ML (0.5-3.6)
[2017-06-29] MEDS: DOXEPIN HCL 25 MG CAP PO SCH (21:36)
[2017-06-29] MEDS: DOXEPIN HCL 10 MG CAP PO SCH (21:41)
[2017-06-29] MEDS: DIAZEPAM 5 MG TAB PO PRN (21:41)
[2017-06-29 22:10] LABS: RHEUMATOID FACTOR TRIGGER LESS THAN 10.0 IU/ML (0.0-14.9)
[2017-06-30] MEDS: ACETAMINOPHEN 325 MG TAB PO PRN ×4 (01:40→23:48)
[2017-06-30] MEDS: PREGABALIN 25 MG CAP PO SCH ×3 (05:10→21:53)
[2017-06-30 06:02] VITALS: BP 153/80; PULSE 80; RESP 17; TEMP 97.9; O2SAT 98
[2017-06-30] MEDS: INSULIN ASPART SUPPLEMENTAL SCALE SQ SCH ×4 (06:15→21:00)
--- NOTE | 2017-06-30 08:52 | HHI.PYPN ---
Subjective Remarks Patient seen and examined with nurse. Chart reviewed. Case discussed in treatment team. On my examination today, the patient says that she is feeling much better. Mood is described as "okay." Denies AVH since last night. Denies SI or HI. Plans to return to live with her brother on discharge but says that she doesn't like her brother's very much and so may try to look into getting an apartment by herself in the future. Some cluster B personality traits noted. Denies side effects from medications. No new physical complaints. Review of Systems Except as stated in HPI: all other systems reviewed are Neg Objective Alert: Yes [place]: Person, Place Mood: Calm Affect: Appropriate Memory Intact: Comment (intact) Hallucinations: Other (denies AVH) Delusions: No Delusion Type: Other (no delusional material) Suicidal: Ideation (denies SI) Homicidal: Ideation (denies HI) Insight/Judgment Poor Remarks No motor abnormalities noted. Thought process linear. Grooming and hygiene good. Labs Test 06/29/17 20:08 Erythrocyte Sedimentation Rate 48 mm/hr Total Creatine Kinase 204 U/L Creatine Kinase MB 1.9 NG/ML Creatine Kinase MB % 0.9 % C-Reactive Protein 0.62 MG/DL Thyroid Stimulating Hormone 3rd Gen 2.610 uIU/ML Rheumatoid Factor Screen NEGATIVE Rheumatoid Factor Titer IU/ML Labs reviewed. Vitals/IOs Vital Signs Date Time Temp Pulse Resp B/P (MAP) Pulse Ox O2 Delivery O2 Flow Rate FiO2 06/30/17 06:02 97.9 80 17 153/80 (104) 98 Assessment & Plan Problem List: (1) Schizoaffective disorder ICD Codes: F25.9 - Schizoaffective disorder, unspecified Status: Acute Assessment & Plan Continue Geodon and other psychotropics as ordered. Encourage fluids and check and updated CK in the morning. Hospitalist input noted and appreciated. Continue to monitor on the inpatient unit. Continue other medications and care as ordered. Justification for Cont. Inpt. Final discharge planning Discharge Planning Anticipate discharge tomorrow, Thursday Request HC Surrog/Guard Advoc?: No Problem Qualifiers (1) Schizoaffective disorder: Qualified Codes: F25.8 - Other schizoaffective disorders Duran Moraes MD Jun 30, 2017 08:51
[2017-06-30] MEDS: ZIPRASIDONE HCL 20 MG CAP PO SCH ×2 (09:14→17:19)
[2017-06-30] MEDS: ZIPRASIDONE HCL 80 MG CAP PO SCH ×2 (09:14→17:19)
[2017-06-30] MEDS: CHOLECALCIFEROL (VIT D3) 1000 UNIT TAB PO SCH (09:14)
[2017-06-30] MEDS: ASPIRIN EC 81 MG TABEC PO SCH (09:14)
[2017-06-30] MEDS: HYDROCHLOROTHIAZIDE 12.5 MG CAP PO SCH (09:14)
[2017-06-30] MEDS: LOSARTAN 50 MG TAB PO SCH (09:14)
[2017-06-30] MEDS: PRASUGREL 10 MG TAB PO SCH (09:15)
[2017-06-30 18:00] VITALS: BP 153/69; PULSE 87; RESP 18; TEMP 98.6; O2SAT 98
--- NOTE | 2017-06-30 18:00 | HHI.PR ---
Subjective Remarks Patient seen and examined Stated her arms feeling better today but not the leg still having cramping and weak No other complaint Objective Vitals Vital Signs Date Time Temp Pulse Resp B/P (MAP) Pulse Ox O2 Delivery O2 Flow Rate FiO2 06/30/17 06:02 97.9 80 17 153/80 (104) 98 06/30/17 02:51 16 06/29/17 22:35 18 06/29/17 18:20 98.1 81 18 156/62 (93) 94 I/O 06/29/17 06/29/17 06/29/17 06/30/17 06/30/17 06/30/17 07:00 15:00 23:00 07:00 15:00 23:00 Intake Total 480 ml 360 ml Balance 480 ml 360 ml Intake Oral 480 ml 360 ml Result Diagram: 06/26/17 0947 Imaging Last Impressions Cervical Spine MRI 06/29/17 0000 Signed Impressions: Service Date/Time: Thursday, June 29, 2017 17:38 - CONCLUSION: Minimal central disc protrusions at the C3-C4, C4-C5 and C5-C6 level and a mild left disc protrusion at the C6-C7 level. There is right neural foraminal narrowing at the C4-C5 level. Moe Michael MD Objective Remarks GENERAL: This is a well-nourished, well-developed female patient, sitting on the side of the bed in no apparent distress. SKIN: No rash. Warm and dry. HEENT: Atraumatic. Normocephalic. Pupils equal round and reactive. Extraocular motions intact. No scleral icterus. No injection or drainage. Nose without bleeding. Airway patent. NECK: Trachea midline. No JVD. Supple. CARDIOVASCULAR: Regular rate and rhythm without murmurs, gallops, or rubs. RESPIRATORY: Clear to auscultation. Breath sounds equal bilaterally. No wheezes , rales, or rhonchi. GASTROINTESTINAL: Abdomen soft, non-tender, nondistended. No guarding. MUSCULOSKELETAL: Extremities without clubbing, cyanosis, or edema. No joint tenderness, effusion, or edema noted. Proximal muscle weakness in bilateral lower extremities. NEUROLOGICAL: Awake and alert. Cranial nerves II through XII intact. Motor and sensory grossly within normal limits. Right upper extremity strength 3/5. Left upper extremity and bilateral lower extremity strength 2/5. Normal speech. DTR brisk. Patient not able to hold lower extremity against gravity bilaterally A/P Problem List: (1) Schizoaffective disorder ICD Code: F25.9 - Schizoaffective disorder, unspecified Status: Acute (2) Muscle weakness ICD Code: M62.81 - Muscle weakness (generalized) (3) Vitamin D deficiency ICD Code: E55.9 - Vitamin D deficiency, unspecified (4) Type 2 diabetes mellitus ICD Code: E11.9 - Type 2 diabetes mellitus without complications (5) Sleep apnea in adult ICD Code: G47.30 - Sleep apnea, unspecified (6) Hyperlipidemia ICD Code: E78.5 - Hyperlipidemia, unspecified Assessment and Plan 62 years old female with a history of fibromyalgia admitted to the psych unit for schizoaffective disorder, medical service consulted regarding history of fibromyalgia. Schizoaffective disorder - Management per psychiatry team. - Current regimen Doxepin, Diazepam, Geodon. Bilateral bilateral lower extremity muscle weakness mostly in the shoulder and pelvic girdle rule out PMR versus polymyositis versus fibromyalgia - Since fibromyalgia is diagnosis of exclusion, we'll try to pain workup from her primary care office, SHELDON pending, CK 205, aldolase pending, ESR 48, CRP 0.62 TSH 2.6, vitamin D 22.5, and MRI of the cervical spine showed. Follow. Minimal central disc protrusions at the C3-C4, C4-C5 and C5- C6 level and a mild left disc protrusion at the C6-C7 level. There is right neural foraminal narrowing at the C4-C5 level - Continue home Lyrica for now. Tylenol PRN pain. Type 2 diabetes mellitus, chronic uncontrolled - Hemoglobin a1C 8.4. - ACCU checks ACHS, sliding scale insulin, cover as needed. -Start Levemir 7 units daily at bedtime - Continue 1800 ADA diet. Hyperlipidemia, chronic: Continue home Losartan. Hypertension, chronic: Relatively controlled. Continue Amlodipine and HCTZ. Monitor BPs. CAD with stent placement: Continue Effient. Continue aspirin. Vitamin D deficiency: Level 22.5. Continue on supplementation. Thank you for this consultation. Will follow with you. Problem Qualifiers (1) Schizoaffective disorder: Qualified Codes: F25.8 - Other schizoaffective disorders Diane Lauren MD Jun 30, 2017 18:00
[2017-06-30] MEDS: DOXEPIN HCL 25 MG CAP PO SCH (21:00)
[2017-06-30] MEDS: DOXEPIN HCL 10 MG CAP PO SCH (21:00)
[2017-06-30] MEDS ORDERED: INSULIN DETEMIR 100 UNITS/ML VIAL SQ SCH (21:00)
[2017-06-30] MEDS: DIAZEPAM 5 MG TAB PO PRN (22:12)
--- NOTE | 2017-06-30 22:30 | RADRPT ---
EXAM DATE/TIME: 06/30/2017 20:45 [facility] COMPARISON: No previous studies available for comparison. INDICATIONS : Lower back pain, unknown injury. MEDICAL HISTORY : None. SURGICAL HISTORY : None. ENCOUNTER: Initial ACUITY: 2 days PAIN SCORE: 9/10 LOCATION: Right lower back. FINDINGS: Lumbar spine alignment is normal. Vertebral bodies have normal height. No fracture seen. Mild disc space narrowing and mild bilateral facet osteoarthritis seen at L3/L4, L4/L5 and L5/S1. CONCLUSION: Mild mid and lower lumbar degenerative changes as above. No fracture or subluxation. Moe Pace MD on June 30, 2017 at 22:27 Board Certified Radiologist. This report was verified electronically.
[2017-07-01] MEDS: ACETAMINOPHEN 325 MG TAB PO PRN ×2 (03:01→14:19)
[2017-07-01 06:01] VITALS: BP 107/69; PULSE 68; RESP 18; TEMP 98.5; O2SAT 98
[2017-07-01] MEDS: PREGABALIN 25 MG CAP PO SCH ×2 (06:15→14:13)
[2017-07-01] MEDS: INSULIN ASPART SUPPLEMENTAL SCALE SQ SCH ×2 (08:00→12:00)
[2017-07-01] MEDS: PRASUGREL 10 MG TAB PO SCH (09:00)
[2017-07-01] MEDS: ZIPRASIDONE HCL 20 MG CAP PO SCH (09:53)
[2017-07-01] MEDS: ZIPRASIDONE HCL 80 MG CAP PO SCH (09:53)
[2017-07-01] MEDS: HYDROCHLOROTHIAZIDE 12.5 MG CAP PO SCH (09:53)
[2017-07-01] MEDS: CHOLECALCIFEROL (VIT D3) 1000 UNIT TAB PO SCH (09:53)
[2017-07-01] MEDS: LOSARTAN 50 MG TAB PO SCH (09:53)
[2017-07-01] MEDS: ASPIRIN EC 81 MG TABEC PO SCH (09:54)
[2017-07-01 10:38] VITALS: RESP 16
[2017-07-01] MEDS ORDERED: GEOD80CA PO (12:32)
[2017-07-01] MEDS ORDERED: LEVEMIR SQ (12:32)
[2017-07-01] MEDS ORDERED: VITA1000 PO (12:32)
[2017-07-01] MEDS ORDERED: ZIPR20 PO (12:32)
--- NOTE | 2017-07-01 12:32 | HHI.DS ---
Psychiatry Discharge Summary Inpatient Psychiatric care?: Yes Advance Directive: No Reason Not Provided: Due to Patient Condition Mental Health AdvanceDirective: No Health Care Proxy: No Admission Admission Date Jun 25, 2017 at 16:17 Admission Diagnosis: (1) Schizoaffective disorder ICD Code: F25.9 - Schizoaffective disorder, unspecified Brief History Ms. Hanks is a 62-year-old female with a reported history of schizoaffective disorder who presents under a Lee act initiated by [facility] alleging that the patient was experiencing auditory hallucinations and possible command auditory hallucinations to self injure. Patient was evaluated by the psychiatric nurse practitioner in the ED. Reviewing the electronic medical record, I see no recent psychiatric contact within our system, although it does appear the patient was seen in consultation back [place] [address] Crane. Patient seen and examined with nurse. Chart reviewed. Case discussed with nursing staff. On my examination today, the patient presents as somewhat anxious. She says that she has been living with her brother and his . She says that they treat her very well but she is left home alone a lot of the time and is quite lonely. She says that she was Lee acted because she went into her mental health office crying. She does say that she has been hearing voices "telling me to get out and run because they're going to get me." She also says that she has been "seeing things on the floor that aren't there." She endorses feeling depressed. Endorses hopelessness and worthlessness. Sleep is poor. She does not describe any current suicidal ideation but does say she has been feeling more irritable although she stops short of articulating homicidal ideation. No hypomanic or manic symptoms noted. No delusions. The remainder of the psychiatric ROS is negative. No physical complaints at this time. Past psychiatric history: The patient has a history of schizoaffective disorder. She follows with Dr. Saldaña. She reports her home psychotropics as Geodon, Doxepin at [facility], and Valium PRN. She reports her most recent psychiatric admission was at [facility] about 7 years ago. She endorses a history of suicide attempt by cutting in the past. Tobacco Use In Past 30 Days: No Tobacco Past 30 Days Alcohol Use: Never Hospital Course Patient was admitted to a locked, inpatient psychiatric unit. A general medical consultation was obtained, and the patient was medically cleared prior to discharge from the inpatient psychiatric unit. Patient was seen and examined daily on the unit by psychiatry and also visited by counselor. Psychotropic medications were adjusted. Patient tolerated medication changes well without side effects. Patient had improvement in presenting psychiatric symptomatology during the course of her hospital stay. There was no evidence of any suicidality or homicidality on the inpatient unit. The patient remained in good behavioral control and was medication compliant. Patient's participation in unit activities has been fair. On the day of discharge: Patient seen and examined with nurse. Chart reviewed. Case discussed with nursing staff, who reports that the patient reported a man in brown pants in her room that she perceived as threatening and for which she was given Ativan PRN. No other behavioral issues noted. On my examination today, patient is requesting discharge from the inpatient psychiatric unit today. She denies any suicidal or homicidal ideation, intent or plan on direct questioning and contracts for safety. She denies any audiovisual hallucinations at this time. When I question her closely regarding her experiences overnight, it sounds like this man in brown pants was part of a dream and not a silvia donna hallucination. Mood is stable, and I can elicit no depressive or hypomanic/manic symptoms at this time. Cluster B personality traits persist. She denies side effects from medications. No new physical complaints. She is agreeable to following up with outpatient provider. Weighing the acute, chronic, and protective factors and based on the available evidence, I senior behavioral scientist to a reasonable degree of medical certainty that the patient does not meet criteria for involuntary psychiatric hospitalization. I have certainly recommended that she stay for additional monitoring in light of her experiences overnight and the need for PRN, but the patient wishes to leave the hospital today. Since she does not meet criteria for involuntary hospitalization, I am obliged to discharge her home today as she asks. Counselor has reached out to patient's family with patient's permission and reports that they have no concerns about accepting her home today. Counselor has also arranged for patient to follow up with her therapist through Dr. Saldaña's office tomorrow morning, and she is also to follow up with Dr. Saldaña as well. Patient is also to follow-up with primary care. I have counseled the patient regarding warning signs for need to return to the psychiatric emergency room as part of general safety plan. Results Blood Pressure 107 / 69 Vital Signs Date Time Temp Pulse Resp B/P (MAP) Pulse Ox O2 Delivery O2 Flow Rate FiO2 07/01/17 10:38 16 07/01/17 06:01 98.5 68 107/69 (82) 98 Laboratory Tests Test 06/29/17 20:08 07/01/17 11:14 Erythrocyte Sedimentation Rate 48 mm/hr (0-30) Total Creatine Kinase 204 U/L (26-192) 363 U/L (26-192) C-Reactive Protein 0.62 MG/DL (0.00-0.30) Laboratory Results Test 06/26/17 09:47 Cholesterol Level 191 MG/DL (120-200) HDL Cholesterol 50.1 MG/DL (40.0-60.0) Hemoglobin A1c 8.4 % (4.3-6.0) LDL Cholesterol 118 MG/DL (0-99) Triglycerides Level 113 MG/DL (42-150) Summary of Major Lab Results CK mildly elevated. I have ordered repeat CK in 1 week along with BMP. Aldolase pending. Summary of Procedures None done Imaging Last Impressions Lumbar Spine X-Ray 06/30/17 0000 Signed Impressions: Service Date/Time: Friday, June 30, 2017 20:45 - CONCLUSION: Mild mid and lower lumbar degenerative changes as above. No fracture or subluxation. Moe Pace MD Cervical Spine MRI 06/29/17 0000 Signed Impressions: Service Date/Time: Thursday, June 29, 2017 17:38 - CONCLUSION: Minimal central disc protrusions at the C3-C4, C4-C5 and C5-C6 level and a mild left disc protrusion at the C6-C7 level. There is right neural foraminal narrowing at the C4-C5 level. Moe Michael MD Pending results at discharge: Yes (Aldolase) Medications # of Antipsychotic meds at D/C: 1 Approp Antipsych med options 1 - Minimum of three failed multiple trials of monotherapy. 2 - Documented plan to taper to monotherapy due to previous use of multiple meds OR cross-taper in progress at D/C. 3 - Documentation of augmentation of Clozapine. 4 - Justification other than those listed in allowable values 1-3, document here : Discharge Discharge Date: Jul 01, 2017 Discharge Diagnosis: (1) Schizoaffective disorder Diagnosis: Principal ICD Code: F25.9 - Schizoaffective disorder, unspecified Status: Acute (2) Cluster B personality traits Diagnosis: Secondary Mental Status Exam at Disch Patient is in hospital attire. Patient is well groomed. Patient is awake and alert and oriented person and hospital at least. No evidence of delirium. No motor abnormalities appreciated. Speech is within normal limits for rate, tone , volume. Focus and concentration intact. Memory grossly intact on clinical exam. Mood is fair. Affect is blunted. Thought process linear. No delusions elicited. Denies audiovisual hallucinations at this time and does not appear internally stimulated. Denies suicidal or homicidal ideation, intent, or plan and contracts for safety. Insight and judgment seem fair. Pt Condition on Discharge: Stable Discharge Disposition: Discharge Home Discharge Instructions Diet Instructions: Diabetic Diet Activities you can perform: Weight Bearing as Apple Scheduled Appointment: as per counselor's notes New Orders: BASIC METABOLIC PROF - 1 Week CREATININE KINASE - 1 Week New Medications: Cholecalciferol (D 1000) 1,000 Unit Tab 2000 UNITS PO DAILY for Vitamin D supplementation for 15 Days, TAB 1 Refill Insulin Detemir Inj (Levemir Inj) 1,000 unit/ 10 ML Vial 7 UNITS SQ HS for ZBS for 15 Days, INJECTION 1 Refill Do not mix with any other Insulin. Ziprasidone (Geodon) 20 Mg Cap 20 MG PO BIDPC for Mental Health for 15 Days, CAP 1 Refill Take with 80mg cap to make 100mg per dose. Ziprasidone (Geodon) 80 Mg Cap 80 MG PO BIDPC for Mental Health for 15 Days, CAP 1 Refill Take with 20mg cap to make 100mg per dose. Continued Medications: Amlodipine (Amlodipine) 10 Mg Tab 10 MG PO DAILY for Blood Pressure Management, #[address] TAB [address] (Aspirin EC) 81 Mg Tabdr 81 MG PO DAILY, TAB 0 Refills Diazepam (Diazepam) 5 Mg Tab 5 MG PO HS PRN for ANXIETY, TAB 0 Refills Doxepin (Doxepin) 25 Mg Cap 25 MG PO HS, #30 CAP 0 Refills Doxepin (Doxepin) 10 Mg Cap 10 MG PO DAILY, CAP Losartan-Hydrochlorothiazide (Losartan-Hydrochlorothiazide) 50-12.5 Mg Tab 1 TAB PO DAILY for Blood Pressure Management, #30 TAB 0 Refills Prasugrel (Effient) 10 Mg Tab 10 MG PO DAILY for Blood Clot Prevention, #30 TAB 0 Refills Pregabalin (Lyrica) 50 Mg Cap 50 MG PO TID, #90 CAP 0 Refills Discontinued Medications: Duloxetine DR (Duloxetine DR) 60 Mg Capdr 60 MG PO DAILY, #30 CAP 0 Refills Ziprasidone (Ziprasidone) 80 Mg Cap 80 MG PO DAILY, #60 CAP 0 Refills Discharge Time > 30 minutes Discharge/Advance Care Plan Health Problems: (1) Schizoaffective disorder Goals to promote your health * To prevent worsening of your condition and complications * To maintain your health at the optimal level Directions to meet your goals Take your medications as prescribed Follow your dietary instruction Follow activity as directed Keep your appointments as scheduled Take your immunizations and boosters as scheduled If your symptoms worsen call your PCP, if no PCP go to Urgent Care Center or Emergency Room For 11/05 questions related to your inpatient stay or results of tests pending at discharge, please contact Dr. Duran Moraes at Smoking is Dangerous to Your Health. Avoid second hand smoking Problem Qualifiers (1) Schizoaffective disorder: Qualified Codes: F25.8 - Other schizoaffective disorders Duran Moraes MD Jul 01, 2017 12:32
[2017-07-01 12:34] LABS: CKMB 3.9 NG/ML (0.5-3.6)
== END 2017-07-01 15:15 | disposition home or self-care (01) | DRG 885 ==
LOC: NEPD 10:46 → NEDA 16:17 → H260 17:02
PROVIDERS: ADMIT Psychiatry & Neurology Psychiatry; ATTEND Psychiatry & Neurology Psychiatry
DX: F25.8 Other schizoaffective disorders (principal); E11.9 Type 2 diabetes mellitus without complications; I10 Essential (primary) hypertension; Z91.5 Personal history of self-harm; Z72.0 Tobacco use; E55.9 Vitamin D deficiency, unspecified; G47.30 Sleep apnea, unspecified; E78.5 Hyperlipidemia, unspecified; I25.10 Atherosclerotic heart disease of native coronary artery without angina pectoris; Z95.5 Presence of coronary angioplasty implant and graft; M79.7 Fibromyalgia
CPT/HCPCS: 72110; 72141; 80048; 80053; 80061; 80307; 82085; 82306; 82550; 82552; 82607; 82948; 83036; 84443; 85025; 85652; 86140; 86430; 93005; 96372; J1815; J2060; J3486